=== PATIENT | male | born 1995 | race Caucasian/White ===

== ENCOUNTER 2017-02-08 13:15 | Emergency (ER) | payer BC ==
[2017-02-08 13:19] VITALS: BP 131/80; PULSE 68; RESP 16; TEMP 97.5; O2SAT 96
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
== END 2017-02-08 14:39 | disposition home or self-care (01) ==
DX: T23.131A Burn of first degree of multiple right fingers (nail), not including thumb, initial encounter (principal); X16.XXXA Contact with hot heating appliances, radiators and pipes, initial encounter